=== PATIENT | male | born 1955 | race Two or more races ===

== ENCOUNTER 2020-02-10 07:00 | Day surgery (SDC) | payer OTHER ==
[~2020-02-10 07:00] MED LIST: ACID REDUCER20 M1 PO; CLONAZEPAM0.5 MG PO; COZAAR100 MG PO; CRESTOR10 MG PO; JANUMET XR 50-1 EACH PO; NORVASC5 MG PO; REGLAN PO; SINGULAIR 10MG10 MG PO; TOPROL XL50 M1 PO
== END 2020-02-10 14:35 | disposition home or self-care (01) ==
LOC: CIR.AMB 07:00
PROVIDERS: ATTEND Otolaryngology Otology & Neurotology
DX: H70.12 Chronic mastoiditis, left ear (principal); G96.01 Cranial cerebrospinal fluid leak, spontaneous; Q01.8 Encephalocele of other sites; H90.12 Conductive hearing loss, unilateral, left ear, with unrestricted hearing on the contralateral side; Z20.828 Contact with and (suspected) exposure to other viral communicable diseases

== ENCOUNTER 2020-02-19 12:14 | Emergency (ER) | payer OTHER ==
[~2020-02-19] VITALS: Ht 167.6 cm; Wt 136.1 kg
== END 2020-02-19 14:30 | disposition home or self-care (01) ==
LOC: ER 12:14
DX: T81.31XA Disruption of external operation (surgical) wound, not elsewhere classified, initial encounter (principal); Y83.8 Other surgical procedures as the cause of abnormal reaction of the patient, or of later complication, without mention of misadventure at the time of the procedure; Y92.89 Other specified places as the place of occurrence of the external cause